=== PATIENT | female | born 1945 | race Caucasian/White ===

== ENCOUNTER 2020-09-08 13:00 | Day surgery (SDC) | payer MEDICARE ==
[~2020-09-08] VITALS: Ht 160 cm; Wt 76.0 kg
[~2020-09-08 13:00] MED LIST: Estradiol Tran1 EAC1 TD; Gummi Bear Mul1 EACH PO; METR250 PO; OMEPRAZOLE-BIC1 EAC1 PO; POLY500 PO; PROBIOTIC1 EAC3 PO
== END 2020-09-08 14:28 | disposition home or self-care (01) ==
LOC: ORSCSDS 13:00
PROVIDERS: Internal Medicine Gastroenterology
PROC: 0DB68ZX Excision of Stomach, Via Natural or Artificial Opening Endoscopic, Diagnostic (ICD-10-PCS; principal; 2020-09-08 14:30)
PROC: 0DB98ZX Excision of Duodenum, Via Natural or Artificial Opening Endoscopic, Diagnostic (ICD-10-PCS; principal; 2020-09-08 14:30)
DX: R11.2 Nausea with vomiting, unspecified (principal); R19.4 Change in bowel habit; K20.80 Other esophagitis without bleeding; K44.9 Diaphragmatic hernia without obstruction or gangrene; K21.9 Gastro-esophageal reflux disease without esophagitis; E66.9 Obesity, unspecified; Z68.30 Body mass index [BMI] 30.0-30.9, adult; Z79.899 Other long term (current) drug therapy
CPT/HCPCS: 88305; 88342; J2704; J7120

== ENCOUNTER → 2020-11-24 | Outpatient (CLI) | payer MEDICARE | END | disposition home or self-care (01) | LOC: LAB EV 11:58 → LAB SHORT 11:58 | DX: N39.0 Urinary tract infection, site not specified (principal) | CPT/HCPCS: 87077; 87086; 87186 ==

== ENCOUNTER → 2022-01-20 | Outpatient (CLI) | payer MEDICARE | END | disposition home or self-care (01) | LOC: LAB SHORT 10:33 → LAB 10:33 | DX: N39.0 Urinary tract infection, site not specified (principal) | CPT/HCPCS: 87077; 87086; 87186 ==

== ENCOUNTER → 2022-05-28 | Outpatient (CLI) | payer MEDICARE | END | disposition home or self-care (01) | LOC: LAB 15:16 → PLD 15:16 → LAB SHORT 15:16 | DX: L72.8 Other follicular cysts of the skin and subcutaneous tissue (principal) | CPT/HCPCS: 88304; 88305 ==

== ENCOUNTER → 2022-11-11 | Outpatient (CLI) | payer MEDICARE | END | disposition home or self-care (01) | LOC: PLD 07:22 → LAB SHORT 07:22 | DX: D48.5 Neoplasm of uncertain behavior of skin (principal) | CPT/HCPCS: 88305 ==

== ENCOUNTER 2023-03-25 12:38 | Day surgery (SDC) | payer MEDICARE ==
[~2023-03-25] VITALS: Ht 157.5 cm; Wt 69.4 kg
[2023-03-25] MEDS ORDERED: Calcium Carbon500 MG PO (13:18)
--- NOTE | 2023-03-25 15:30 | NUR ---
03/25/23 1530 Amanda Arcos SCOPE USED TO RENTER THE COLON TO TAKE SIGMIOD COLON BXS. UPPER SCOPE
[2023-03-25 15:43] VITALS: BP 110/66
== END 2023-03-25 15:54 | disposition home or self-care (01) ==
LOC: ORSCSDS 12:38
PROVIDERS: Internal Medicine Gastroenterology
PROC: 0DBN8ZX Excision of Sigmoid Colon, Via Natural or Artificial Opening Endoscopic, Diagnostic (ICD-10-PCS; principal; 2023-03-25 14:15)
DX: K62.5 Hemorrhage of anus and rectum (principal); K58.2 Mixed irritable bowel syndrome; K57.30 Diverticulosis of large intestine without perforation or abscess without bleeding; K64.4 Residual hemorrhoidal skin tags; K21.9 Gastro-esophageal reflux disease without esophagitis; E78.5 Hyperlipidemia, unspecified; E05.00 Thyrotoxicosis with diffuse goiter without thyrotoxic crisis or storm; Z79.899 Other long term (current) drug therapy
CPT/HCPCS: 88305; J2704; J7120

== ENCOUNTER 2023-05-01 12:30 | Day surgery (SDC) | payer MEDICARE ==
[~2023-05-01] VITALS: Ht 160 cm; Wt 71.0 kg
[2023-05-01] VITALS (12 sets, daily range): BP systolic 93–119; BP diastolic 47–94
[~2023-05-01 12:30] MED LIST changes: +CLIMARA1 EACH TOP; +Calcium Carbon500 MG PO; +ESTRADIOL42.5 GM VAG; +MULVITA PO
[2023-05-01] MEDS ORDERED: CALCIUM 250-VI1 EAC1 PO (13:56)
[2023-05-01] MEDS ORDERED: POTA8 PO (13:57)
[2023-05-01] MEDS ORDERED: METAMUCIL POWD798 GM PO (13:57)
--- NOTE | 2023-05-01 17:50 | NUR ---
SUMMARY NO ACUTE CHANGES SINCE ARRIVING TO UNIT. VSS. PAIN TOLERABLE. TUCKER PRODUCING YELLLOW URINE. EATING GLUTEN FREE DINNER AT THIS TIME. CALL LIGHT IN REACH.
[2023-05-02 04:17] VITALS: BP 97/54
--- NOTE | 2023-05-02 05:09 | NUR ---
SHIFT SUMMARY POD1 A&P REPAIR. MODERATE AMOUNT OF DRIED BLOOD NOTED ON FIRST PAD REMOVED AT THE BEGINNING OF SHIFT. LIGHT AMOUNT OF BLOOD NOTED ON CURRENT JULIA PAD. TUCKER REMAINS IN PLACE. PLAN TO REMOVE THIS AM, ORDER FOR PVR AFTER FIRST VOID. PT REMAINED IN BED AND SLEPT T/O THE NIGHT BUT WAS ABLE TO REPOSITION SELF AND MOVE IN BED INDEPENDENTLY W/O DIFFICULTY. VSS, BP NOTED TO BE SOFTER THIS AM. IV FLUIDS INFUSING, PT REMAINS ASYMPTOMASTIC. PT MEDICATED FOR PAIN WITH NORCO AND TORADOL WITH GOOD RESULT. PT TOLLERATING PO INTAKE W/O N/V. NO ACUTE EVENTS T/O THE NIGHT.
--- NOTE | 2023-05-02 06:23 | NUR ---
TUCKER TUCKER REMOVED AT 0600, EDUCATED TO CALL BEFORE AMBULATING TO BATHROOM
[2023-05-02 07:22] VITALS: BP 101/57
--- NOTE | 2023-05-02 09:54 | NUR ---
DISCHARGE SUMMARY PT A&OX4, VSS/RA, DEVON PO, VOIDED/PVR 2, AMB IND/DRESSED SELF, PAIN MANAGED, IV DC'D. DC INS PROVIDED. PT REP UNDERSTANDING THOSE INSTRUCTIONS. LEFT FLOOR VIA WC WITH ALL PERSONAL POSSESSIONS, TO GO HOME WITH .
== END 2023-05-02 10:10 | disposition home or self-care (01) ==
LOC: ORSCMMR 12:30 → ORD 14:00 → SURS 16:28 → ORSCMMR 05-02 10:10
PROVIDERS: Obstetrics & Gynecology
PROC: 0JQC0ZZ Repair Pelvic Region Subcutaneous Tissue and Fascia, Open Approach (ICD-10-PCS; principal; 2023-05-01 14:00)
DX: N81.11 Cystocele, midline (principal); N81.5 Vaginal enterocele; N81.6 Rectocele; E16.2 Hypoglycemia, unspecified; Z79.899 Other long term (current) drug therapy
CPT/HCPCS: 82947; A9270; J0690; J1100; J1885; J2405; J2704; J3010; J7120

== ENCOUNTER → 2023-11-13 | Outpatient (CLI) | payer MEDICARE ==
[~2023-11-13] MED LIST changes: +CALCIUM 250-VI1 EAC1 PO; +METAMUCIL POWD798 GM PO; +POTA8 PO
== END | disposition home or self-care (01) ==
LOC: LAB SHORT 07:41 → LAB 07:41
DX: D17.22 Benign lipomatous neoplasm of skin and subcutaneous tissue of left arm (principal)
CPT/HCPCS: 88304